=== PATIENT | male | born 1970 | race Caucasian/White ===

== ENCOUNTER 2023-09-06 06:20 | Day surgery (SDC) | payer BC ==
[~2023-09-06 06:20] MED LIST: Sodium Chloride 0.9% 10 ML Syringe FLUSH PRN
[2023-09-06] MEDS ORDERED: Propofol 200 MG/20 ML SDV IV ONE (06:21)
[2023-09-06] MEDS ORDERED: Midazolam 1 MG/ML 2 ML SDV IV ONE (06:21)
[2023-09-06] MEDS: Lactated Ringers 1,000 ML IV SCH (07:15)
[2023-09-06] MEDS: Simethicone Drops 40 MG/0.6 ML 30 ML Bottle PO ONE (07:41)
== END 2023-09-06 08:45 | disposition home or self-care (01) ==
LOC: FB.SDS 06:20
PROVIDERS: ATTEND Surgery
DX: Z12.11 Encounter for screening for malignant neoplasm of colon (principal); K57.30 Diverticulosis of large intestine without perforation or abscess without bleeding; I10 Essential (primary) hypertension; E66.9 Obesity, unspecified
CPT/HCPCS: 45378; A9270; J2250; J2704; J7120